=== PATIENT | male | born 1960 | race Caucasian/White ===

== ENCOUNTER → 2020-10-12 | Day surgery (SDC) | payer OTHER ==
[~2020-10-12] MED LIST: ASPIRIN81 MG PO; BUPIVACAINE HCL 0.5% INJ 30 ML VIAL INJ ONE; CLINDAMYCIN PHOS 900MG/ 50ML 50 ML IV ONE; COQ1050 MG PO; DEXAMETHASONE SOD PHOS INJ 4 MG/ML VIAL ONE; GLUCOSAMINE1000 MG PO; NEOSTIGMINE 1 MG/ML 10ML VIAL ONE; NEXIUM20 MG PO
[2020-10-12 09:45] VITALS: BP 100/79
== END | disposition home or self-care (01) ==
LOC: OR 06:11
PROVIDERS: ATTEND Podiatrist Foot & Ankle Surgery
DX: M67.472 Ganglion, left ankle and foot (principal); G57.52 Tarsal tunnel syndrome, left lower limb; Z88.0 Allergy status to penicillin; Z01.810 Encounter for preprocedural cardiovascular examination; Z79.82 Long term (current) use of aspirin
CPT/HCPCS: 28090; 28116; 76000; 93005; J2710; Q4150; J1100